=== PATIENT | male | born 1955 | race Caucasian/White ===

== ENCOUNTER 2021-05-09 12:33 | Outpatient (CLI) | payer MEDICARE, OTHER | END 2021-05-09 12:34 | disposition home or self-care (01) | LOC: CSHMRI 12:33 | PROVIDERS: ATTEND Urology | DX: C61 Malignant neoplasm of prostate (principal); N28.9 Disorder of kidney and ureter, unspecified | CPT/HCPCS: 72197; 82565 ==

== ENCOUNTER 2023-01-06 06:14 | Observation (INO) | payer MEDICARE, OTHER ==
[2023-01-06 07:35] VITALS: BMI 23.6
[2023-01-06] MEDS ORDERED: Nitroglycerin 0.4 MG TAB (25 Tab Bottle) SL PRN (07:39)
[2023-01-06] MEDS ORDERED: Acetaminophen 650 MG Suppository PR PRN (07:40)
[2023-01-06] MEDS ORDERED: Ondansetron PF 4 MG/2 ML Vial IVP PRN (07:40)
[2023-01-06] MEDS ORDERED: Ondansetron ODT 4 MG TAB PO PRN (07:40)
[2023-01-06] MEDS ORDERED: Acetaminophen 325 MG TAB PO PRN (07:40)
[2023-01-06] MEDS ORDERED: Nicotine 14 MG PATCH TD SCH (08:45)
[2023-01-06 08:52] LABS: Troponin I 0.015 ng/mL (< 0.028)
[2023-01-06] MEDS: Aspirin Chewable 81 MG TAB PO SCH (09:42)
[2023-01-06] MEDS: Amlodipine 10 MG TAB PO SCH (09:42)
[2023-01-06] MEDS ORDERED: Iopamidol 300 61% 100 ML VIAL FS ONE (12:43)
[2023-01-06] MEDS: CO Q-10 CAPSULE 50 MG PO SCH (13:07)
[2023-01-06 13:32] LABS: Troponin I 0.019 ng/mL (< 0.028)
[2023-01-06] MEDS ORDERED: Nitroglycerin 2% Ointment 1 INCH/1 GM Packet TOP SCH (14:00)
[2023-01-06] MEDS ORDERED: FLU VACC QS2023(65UP)/MF59C/PF 60 MCG/0.5 ML SYRINGE IM ONE (14:00)
[2023-01-06 14:43] LABS: Magnesium 2.1 mg/dL (1.6-2.6)
[2023-01-06] MEDS ORDERED: Isosorbide Mononitrate 30 MG ER.TAB PO SCH (15:00)
[2023-01-06] MEDS ORDERED: Rosuvastatin 20 MG TAB PO SCH (21:00)
[2023-01-07 04:50] LABS: #Monocytes 1.9 10x3/uL (0.0-1.1); #Neutrophils 8.5 10x3/uL (1.5-8.4); %Basophils 0.2 % (0.0-2.0); %Eosinophils 0.1 % (0.0-6.0); %Lymphocytes 7.5 % (18.0-47.0); %Monocytes 16.7 % (0.0-10.0); %Neutrophils 75.2 % (40.0-75.0); Hematocrit 38.2 % (38.8-50.0); Hemoglobin 13.2 g/dL (13.5-17.5); Mean Corpuscular HGB CONC 34.6 g/dL (32.0-36.0); Mean Corpuscular Hemoglobin 32.5 pg (27.0-33.0); Mean Corpuscular Volume 94.1 fl (81.2-95.1); Platelet Count 145 10x3/uL (150-450); RBC Distribution Width 13.8 % (11.5-14.5); Red Blood Cell (RBC) Count 4.06 10x6/uL (4.32-5.72); White Blood Cell (WBC) Count 11.3 10x3/uL (3.5-10.5)
[2023-01-07 05:04] LABS: Anion Gap 13 mmol/L (10-20); BUN (Urea Nitrogen) 24 mg/dL (8.4-25.7); Calc. Creatinine Clearance 55 mL/min (70-130); Calcium 8.3 mg/dL (7.8-10.44); Carbon Dioxide 23 mmol/L (23-31); Cardiac Risk 2.9 (Less than 4.5); Chloride 104 mmol/L (98-107); Cholesterol 110 mg/dl (< 200 Desired); Estimated GFR 52; Glucose 117 mg/dL (80-115); HDL Cholesterol 38 mg/dL (>60 Neg Risk); LDL Cholesterol, Calculated 63 mg/dL; Potassium 3.8 mmol/L (3.5-5.1); Sodium 136 mmol/L (136-145); Triglycerides 46 mg/dL (Less than 150)
[2023-01-07] MEDS: Amlodipine 10 MG TAB PO SCH (08:53)
[2023-01-07] MEDS: CO Q-10 CAPSULE 50 MG PO SCH (08:53)
[2023-01-07] MEDS: Aspirin Chewable 81 MG TAB PO SCH (08:53)
[2023-01-07] MEDS ORDERED: Isosorbide Mononitrate 30 MG ER.TAB PO SCH (09:00)
[2023-01-07] MEDS ORDERED: Nicotine 14 MG PATCH TD SCH (09:00)
[2023-01-07] MEDS ORDERED: Potassium Chloride 20 MEQ TAB PO SCH (10:00)
[2023-01-07 11:41] VITALS: BP 159/79; TEMP 97.7
== END 2023-01-07 12:06 | disposition home or self-care (01) ==
LOC: CSHTELE 06:14
PROVIDERS: ADMIT Student in an Organized Health Care Education/Training Program; ATTEND Family Medicine
DX: R07.9 Chest pain, unspecified (principal); I25.118 Atherosclerotic heart disease of native coronary artery with other forms of angina pectoris; I12.9 Hypertensive chronic kidney disease with stage 1 through stage 4 chronic kidney disease, or unspecified chronic kidney disease; N18.31 Chronic kidney disease, stage 3a; E78.5 Hyperlipidemia, unspecified; I73.9 Peripheral vascular disease, unspecified; F17.210 Nicotine dependence, cigarettes, uncomplicated; I35.1 Nonrheumatic aortic (valve) insufficiency; I65.21 Occlusion and stenosis of right carotid artery; R91.1 Solitary pulmonary nodule; K80.20 Calculus of gallbladder without cholecystitis without obstruction; Z88.6 Allergy status to analgesic agent; Z79.82 Long term (current) use of aspirin; Z79.899 Other long term (current) drug therapy
CPT/HCPCS: 36415; 71275; 74174; 80048; 80061; 83735; 85025; 93306; 96372; G0378; J1650; Q9967